=== PATIENT | female | born 1995 | race Hispanic/Latino ===

== ENCOUNTER 2019-03-26 08:28 | Inpatient (IN) ==
[2019-03-26 09:22] LABS: URINE SOURCE VOIDED
[2019-03-26 09:26] LABS: BILIRUBIN URINE NEGATIVE (NEGATIVE); BLOOD URINE 4+ (NEGATIVE); CLARITY VERY CLOUDY (CLEAR); COLOR YELLOW; GLUCOSE URINE NEGATIVE (NEGATIVE); KETONE URINE NEGATIVE (NEGATIVE); LEUKOCYTES URINE 1+ (NEGATIVE); NITRITE URINE NEGATIVE (NEGATIVE); PROTEIN URINE NEGATIVE (NEGATIVE); UROBILINOGEN URINE NORMAL
[2019-03-26] MEDS ORDERED: BRETHINE SUBQ ONE (09:35)
--- NOTE | 2019-03-26 09:53 | OB/GYN PROGRESS NOTE ---
Progress Note OB - . OB Progress Note: Vital Signs - 24 hr 03/26/19 08:36 Temperature 97.1 F L Pulse Rate 77 Respiratory Rate 20 Blood Pressure 99/64 O2 Sat by Pulse Oximetry 97 Laboratory Results - last 24 hr 03/26/19 08:00 Urine Source VOIDED Urine Color YELLOW Urine Clarity VERY CLOUDY A Urine pH 7.0 Ur Specific [place] 1.010 Urine Protein NEGATIVE Urine Ketones NEGATIVE Urine Blood 4+ Urine Nitrite NEGATIVE Urine Bilirubin NEGATIVE Urine Urobilinogen NORMAL Urine WBC 1+ A Urine Glucose NEGATIVE OB TRIAGE NOTE Labor check Patient is a 23 year old with an IUP at 38+ 3 weeks who presents with complaints of bleeding. Patient has had good care and is compliant. she is also complaining of abdominal pain. patient reports she passed a small clot last night. Minimal greenlandic - translation line for assistance AFVSS General: AAOx3 in mild distress with contractions HEENT: NCAT CV: S1 S2 normal Lungs clear Abd: gravid positive bowel sounds Ext; no edema CE 3-4 cms/ 50 percent effaced. ballotable bag of [place]. pinkish fluid on gloves, no ru bleeding FHR: reactive with acels TOCO: contractions q2-6 minutes apart. A/P IUP at 38+3 weeks latent phase of labor - will use one dose of terbutaline to see if we can decrease contractions - monitor for 2 hours and recheck. will admit is cervix is changed or discharge home if cervix is unchanged
[2019-03-26] MEDS ORDERED: PEPCID PO PRN (11:43)
[2019-03-26] MEDS ORDERED: KEFZOL 1 GM/D5W 1 GM/50 ML IVPB IV PRN (11:43)
[2019-03-26] MEDS ORDERED: PEPCID IV PRN (11:43)
[2019-03-26] MEDS ORDERED: REGLAN PO ONE (11:43)
[2019-03-26] MEDS ORDERED: ZOFRAN IV PRN (11:43)
[2019-03-26] MEDS ORDERED: PEPCID PO ONE (11:43)
[2019-03-26] MEDS ORDERED: STADOL IV PRN (11:43)
[2019-03-26] MEDS ORDERED: TYLENOL PO PRN (11:43)
[2019-03-26] MEDS ORDERED: SODIUM CHLORIDE 0.9% INJ SCH (11:45)
[2019-03-26] MEDS ORDERED: PITOCIN 30 UNITS/NS 30 UNIT/500 ML IV.SOLN IV SCH (11:45)
[2019-03-26] MEDS: LR 1,000 ML IV SCH ×2 (12:25→13:15)
[2019-03-26] MEDS ORDERED: FENTANYL-BUPIV-NS 2 MCG-0.1% 200 ML EPIDURAL PRN (12:30)
[2019-03-26] MEDS ORDERED: NAROPIN 0.2% INJ ONE (12:45)
[2019-03-26 12:48] LABS: BASO# 0.01 X1000 (0.0-0.2); BASO% 0.1 % (0.0-0.8); EOS# 0.02 X1000 (0.0-0.7); EOS% 0.3 % (0.0-10.0); HEMATOCRIT 32.8 % (37.0-47.0); IMM GRAN# 0.05 X1000 (0.0-0.04); IMM GRAN% 0.7 % (0.0-0.5); LYMPH# 1.33 X1000 (1.2-3.4); LYMPH% 18.5 % (20.5-51.1); MCHC 33.5 g/dL (33-37); MCV 101.2 FL (81-99); MONO# 0.74 X1000 (0.11-0.59); MONO% 10.3 % (1.7-9.3); MPV 9.9 FL (7.4-10.4); NEUT# 5.03 X1000 (1.4-6.5); NEUT% 70.1 % (42.2-75.2); PLT 168 X1000 (130-400); RBC 3.24 XMIL (4.2-5.4); RDW 12.3 % (11.5-14.5); WBC 7.18 X1000 (4.8-10.8)
[2019-03-26 13:35] LABS: UR AMPHETAMINES QUAL NONE DETECTED (NONE DETECT); UR BARBITUATES QUAL NONE DETECTED (NONE DETECT); UR BENZODIAZEPIN QUAL NONE DETECTED (NONE DETECT); UR CANNABINOIDS QUAL NONE DETECTED (NONE DETECT); UR COCAINE QUAL NONE DETECTED (NONE DETECT); UR METHADONE QUAL NONE DETECTED (NONE DETECT); UR METHAMPHETAMINE QUAL NONE DETECTED (NONE DETECT); UR OPIATES QUAL NONE DETECTED (NONE DETECT); UR OXYCODONE QUAL NONE DETECTED (NONE DETECT); UR PCP QUAL NONE DETECTED (NONE DETECT); UR PROPOXYPHENE QUAL NONE DETECTED (NONE DETECT); UR TCA QUAL NONE DETECTED (NONE DETECT)
--- NOTE | 2019-03-26 14:44 | OB/GYN PROGRESS NOTE ---
Progress Note OB - . OB Progress Note: Vital Signs - 24 hr 03/26/19 08:36 03/26/19 11:00 Temperature 97.1 F L 97.6 F Pulse Rate 77 93 H Respiratory Rate 20 18 Blood Pressure 99/64 96/53 O2 Sat by Pulse Oximetry 97 98 Laboratory Results - last 24 hr 03/26/19 03/26/19 03/26/19 08:00 12:25 12:25 WBC 7.18 RBC 3.24 L Hgb 11.0 L Hct 32.8 L MCV 101.2 H MCH 34.0 H MCHC 33.5 RDW Std Deviation 12.3 Plt Count 168 MPV 9.9 Immature Gran % (Auto) 0.7 H Neut % (Auto) 70.1 Lymph % (Auto) 18.5 L [place] % (Auto) 10.3 H Eos % (Auto) 0.3 Baso % (Auto) 0.1 Immature Gran # (Auto) 0.05 H Neut # (Auto) 5.03 Lymph # (Auto) 1.33 [place] # (Auto) 0.74 H Eos # (Auto) 0.02 Baso # (Auto) 0.01 Urine Source VOIDED Urine Color YELLOW Urine Clarity VERY CLOUDY A Urine pH 7.0 Ur Specific [place] 1.010 Urine Protein NEGATIVE Urine Ketones NEGATIVE Urine Blood 4+ Urine Nitrite NEGATIVE Urine Bilirubin NEGATIVE Urine Urobilinogen NORMAL Urine WBC 1+ A Urine Glucose NEGATIVE Urine Opiates Screen Ur Oxycodone Screen Urine Methadone Screen U Propoxyphene Qual Ur Barbituates Screen Ur Tricyclics Screen Ur Phencyclidine Scrn Ur Amphetamines Screen U Methamphetamines Scrn U Benzodiazepines Scrn Urine Cocaine Screen U Cannabinoids Screen RPR NON-REACTIVE 03/26/19 13:07 WBC RBC Hgb Hct MCV MCH MCHC RDW Std Deviation Plt Count MPV Immature Gran % (Auto) Neut % (Auto) Lymph % (Auto) [place] % (Auto) Eos % (Auto) Baso % (Auto) Immature Gran # (Auto) Neut # (Auto) Lymph # (Auto) [place] # (Auto) Eos # (Auto) Baso # (Auto) Urine Source Urine Color Urine Clarity Urine pH Ur Specific [place] Urine Protein Urine Ketones Urine Blood Urine Nitrite Urine Bilirubin Urine Urobilinogen Urine WBC Urine Glucose Urine Opiates Screen NONE DETECTED Ur Oxycodone Screen NONE DETECTED Urine Methadone Screen NONE DETECTED U Propoxyphene Qual NONE DETECTED Ur Barbituates Screen NONE DETECTED Ur Tricyclics Screen NONE DETECTED Ur Phencyclidine Scrn NONE DETECTED Ur Amphetamines Screen NONE DETECTED U Methamphetamines Scrn NONE DETECTED U Benzodiazepines Scrn NONE DETECTED Urine Cocaine Screen NONE DETECTED U Cannabinoids Screen NONE DETECTED RPR OB progress note Patient doing well after epidural. No complaints. AFVSS [place]: contractions q 3 minutes FHR: reactive at 130 bpm with acels CE: 6-7 cm/60% effaced/-2 A/P IUP at 38+3 in labor - GBS negative -epidural in place - expect vaginal delivery
[2019-03-26] MEDS ORDERED: XYLOCAINE-MPF 1% INJ PRN (20:47)
[2019-03-26] MEDS ORDERED: MINERAL OIL PRN (20:47)
[2019-03-27] MEDS ORDERED: MINERAL OIL PO PRN (01:09)
[2019-03-27] MEDS ORDERED: CYTOTEC PO PRN (01:09)
[2019-03-27] MEDS ORDERED: ATARAX PO PRN (01:09)
[2019-03-27] MEDS ORDERED: AMBIEN PO PRN (01:09)
[2019-03-27] MEDS ORDERED: PITOCIN IM PRN (01:09)
[2019-03-27] MEDS ORDERED: PERI MEDS (DERMOPLAST/NUPERCAINAL/TUCKS) MISC PRN (01:09)
[2019-03-27] MEDS ORDERED: BENADRYL IV PRN (01:09)
[2019-03-27] MEDS ORDERED: HYDROXYZINE IM PRN (01:09)
[2019-03-27] MEDS ORDERED: M-M-R II VACCINE SUBQ ONE (01:09)
[2019-03-27] MEDS ORDERED: XYLOCAINE-MPF 1% INJ PRN (01:09)
[2019-03-27] MEDS ORDERED: BOOSTRIX VACCINE IM ONE (01:09)
--- NOTE | 2019-03-27 01:09 | OB/GYN PROGRESS NOTE ---
Progress Note OB - . OB Progress Note: Vital Signs - 24 hr 03/26/19 08:36 03/26/19 11:00 03/26/19 13:30 Temperature 97.1 F L 97.6 F 97.6 F Pulse Rate 77 93 H 78 Respiratory Rate 20 18 20 Blood Pressure 99/64 96/53 102/63 O2 Sat by Pulse Oximetry 97 98 100 Laboratory Results - last 24 hr 03/26/19 03/26/19 03/26/19 08:00 12:25 12:25 WBC 7.18 RBC 3.24 L Hgb 11.0 L Hct 32.8 L MCV 101.2 H MCH 34.0 H MCHC 33.5 RDW Std Deviation 12.3 Plt Count 168 MPV 9.9 Immature Gran % (Auto) 0.7 H Neut % (Auto) 70.1 Lymph % (Auto) 18.5 L [place] % (Auto) 10.3 H Eos % (Auto) 0.3 Baso % (Auto) 0.1 Immature Gran # (Auto) 0.05 H Neut # (Auto) 5.03 Lymph # (Auto) 1.33 [place] # (Auto) 0.74 H Eos # (Auto) 0.02 Baso # (Auto) 0.01 Urine Source VOIDED Urine Color YELLOW Urine Clarity VERY CLOUDY A Urine pH 7.0 Ur Specific [place] 1.010 Urine Protein NEGATIVE Urine Ketones NEGATIVE Urine Blood 4+ Urine Nitrite NEGATIVE Urine Bilirubin NEGATIVE Urine Urobilinogen NORMAL Urine WBC 1+ A Urine Glucose NEGATIVE Urine Opiates Screen Ur Oxycodone Screen Urine Methadone Screen U Propoxyphene Qual Ur Barbituates Screen Ur Tricyclics Screen Ur Phencyclidine Scrn Ur Amphetamines Screen U Methamphetamines Scrn U Benzodiazepines Scrn Urine Cocaine Screen U Cannabinoids Screen RPR NON-REACTIVE 03/26/19 13:07 WBC RBC Hgb Hct MCV MCH MCHC RDW Std Deviation Plt Count MPV Immature Gran % (Auto) Neut % (Auto) Lymph % (Auto) [place] % (Auto) Eos % (Auto) Baso % (Auto) Immature Gran # (Auto) Neut # (Auto) Lymph # (Auto) [place] # (Auto) Eos # (Auto) Baso # (Auto) Urine Source Urine Color Urine Clarity Urine pH Ur Specific [place] Urine Protein Urine Ketones Urine Blood Urine Nitrite Urine Bilirubin Urine Urobilinogen Urine WBC Urine Glucose Urine Opiates Screen NONE DETECTED Ur Oxycodone Screen NONE DETECTED Urine Methadone Screen NONE DETECTED U Propoxyphene Qual NONE DETECTED Ur Barbituates Screen NONE DETECTED Ur Tricyclics Screen NONE DETECTED Ur Phencyclidine Scrn NONE DETECTED Ur Amphetamines Screen NONE DETECTED U Methamphetamines Scrn NONE DETECTED U Benzodiazepines Scrn NONE DETECTED Urine Cocaine Screen NONE DETECTED U Cannabinoids Screen NONE DETECTED RPR Delivery Note: Patient was admitted in labor, received an epidural progressed to complete dilation. patient was delivered via Normal Spontaneous vaginal delivery of a Live viable female weighing 7lbs and 2 ounces over a second degree midline laceration. Apgars were 9 and 9 at one and five minutes respectively. placenta delivered spontaneously appears intact. second degree laceration repaired using 2.0 chromic. Estimated blood loss about 250 cc. Infant to New born nursery. Mother tolerated procedure well. Delivery Doctor- Jabier
[2019-03-27] MEDS ORDERED: PITOCIN 30 UNITS/NS 30 UNIT/500 ML IV.SOLN IV SCH (01:15)
[2019-03-27] MEDS ORDERED: PITOCIN 20 UNITS/NS 20 UNITS/1,000 ML IV.SOLN ONE (01:15)
[2019-03-27] MEDS ORDERED: PITOCIN 20 UNITS/NS 20 UNITS/1,000 ML IV.SOLN IV SCH (01:15)
[2019-03-27] MEDS: PERCOCET-5 PO PRN ×3 (02:12→22:11)
[2019-03-27] MEDS: MOTRIN PO PRN ×3 (02:12→19:28)
[2019-03-27 06:14] LABS: BASO# 0.01 X1000 (0.0-0.2); BASO% 0.1 % (0.0-0.8); HEMOGLOBIN 9.6 g/dL (12.0-16.0); IMM GRAN# 0.03 X1000 (0.0-0.04); IMM GRAN% 0.2 % (0.0-0.5); LYMPH# 0.81 X1000 (1.2-3.4); LYMPH% 5.1 % (20.5-51.1); MCH 34.2 PG (27-31); MCHC 33.1 g/dL (33-37); MCV 103.2 FL (81-99); MONO% 8.2 % (1.7-9.3); NEUT# 13.72 X1000 (1.4-6.5); NEUT% 86.4 % (42.2-75.2); PLT 168 X1000 (130-400); RBC 2.81 XMIL (4.2-5.4); RDW 12.4 % (11.5-14.5); WBC 15.87 X1000 (4.8-10.8)
[2019-03-27 06:50] LABS: SEGS 90 % (42-75)
[2019-03-27 06:51] LABS: LYMPHS 4 % (21-51); MONO 6 % (1-9)
[2019-03-27] MEDS: PRECARE PO SCH (09:24)
[2019-03-27] MEDS: BENADRYL PO PRN (10:41)
--- NOTE | 2019-03-27 10:49 | OB/GYN PROGRESS NOTE ---
Progress Note OB - . OB Progress Note: Vital Signs - 24 hr 03/26/19 11:00 03/26/19 13:30 03/27/19 01:00 Temperature 97.6 F 97.6 F 98.9 F Pulse Rate 93 H 78 89 Respiratory Rate 18 20 18 Blood Pressure 96/53 102/63 104/64 Blood Pressure [Right Arm] 104/64 O2 Sat by Pulse Oximetry 98 100 100 03/27/19 01:10 03/27/19 01:20 03/27/19 01:30 Temperature Pulse Rate 86 91 H 82 Respiratory Rate 18 18 18 Blood Pressure Blood Pressure [Right Arm] 101/62 122/65 O2 Sat by Pulse Oximetry 100 100 100 03/27/19 01:40 03/27/19 01:50 03/27/19 02:00 Temperature Pulse Rate 79 93 H 70 Respiratory Rate 18 18 18 Blood Pressure Blood Pressure [Right Arm] 101/55 O2 Sat by Pulse Oximetry 100 100 100 03/27/19 02:13 03/27/19 04:00 03/27/19 07:45 Temperature 96.9 F L Pulse Rate 82 82 82 Respiratory Rate 18 16 18 Blood Pressure 95/57 109/61 Blood Pressure [Right Arm] 95/57 O2 Sat by Pulse Oximetry 100 99 98 Laboratory Results - last 24 hr 03/26/19 03/26/19 03/26/19 12:25 12:25 13:07 WBC 7.18 RBC 3.24 L Hgb 11.0 L Hct 32.8 L MCV 101.2 H MCH 34.0 H MCHC 33.5 RDW Std Deviation 12.3 Plt Count 168 MPV 9.9 Immature Gran % (Auto) 0.7 H Neut % (Auto) 70.1 Lymph % (Auto) 18.5 L [place] % (Auto) 10.3 H Eos % (Auto) 0.3 Baso % (Auto) 0.1 Immature Gran # (Auto) 0.05 H Neut # (Auto) 5.03 Lymph # (Auto) 1.33 [place] # (Auto) 0.74 H Eos # (Auto) 0.02 Baso # (Auto) 0.01 Segmented Neutrophils Lymphocytes Monocytes Urine Opiates Screen NONE DETECTED Ur Oxycodone Screen NONE DETECTED Urine Methadone Screen NONE DETECTED U Propoxyphene Qual NONE DETECTED Ur Barbituates Screen NONE DETECTED Ur Tricyclics Screen NONE DETECTED Ur Phencyclidine Scrn NONE DETECTED Ur Amphetamines Screen NONE DETECTED U Methamphetamines Scrn NONE DETECTED U Benzodiazepines Scrn NONE DETECTED Urine Cocaine Screen NONE DETECTED U Cannabinoids Screen NONE DETECTED RPR NON-REACTIVE ABO/Rh RhIG Candidate? 03/27/19 03/27/19 05:33 05:37 WBC 15.87 H D RBC 2.81 L Hgb 9.6 L Hct 29.0 L MCV 103.2 H MCH 34.2 H MCHC 33.1 RDW Std Deviation 12.4 Plt Count 168 MPV 10.0 Immature Gran % (Auto) 0.2 Neut % (Auto) 86.4 H Lymph % (Auto) 5.1 L [place] % (Auto) 8.2 Eos % (Auto) 0.0 Baso % (Auto) 0.1 Immature Gran # (Auto) 0.03 Neut # (Auto) 13.72 H Lymph # (Auto) 0.81 L [place] # (Auto) 1.30 H Eos # (Auto) 0.00 Baso # (Auto) 0.01 Segmented Neutrophils 90 H Lymphocytes 4 L Monocytes 6 Urine Opiates Screen Ur Oxycodone Screen Urine Methadone Screen U Propoxyphene Qual Ur Barbituates Screen Ur Tricyclics Screen Ur Phencyclidine Scrn Ur Amphetamines Screen U Methamphetamines Scrn U Benzodiazepines Scrn Urine Cocaine Screen U Cannabinoids Screen RPR ABO/Rh A NEGATIVE RhIG Candidate? NO POST NOTE patient report she has swelling in her perineal area. AFVSS perineum - swollen- sutures in tact. a/p PPD#1 perineal swelling - trial of benadry and ice packs
[2019-03-27] MEDS: PERICOLACE PO SCH (22:11)
[2019-03-28] MEDS: PRECARE PO SCH (08:58)
[2019-03-28] MEDS: MOTRIN PO PRN ×2 (08:58→17:10)
--- NOTE | 2019-03-28 09:54 | OB/GYN PROGRESS NOTE ---
Progress Note OB - . Patient Problems: Current Active Problems Problem Status Onset Language barrier Acute Vaginal delivery Acute Intrauterine Acute OB Progress Note: Vital Signs - 24 hr 03/27/19 12:00 03/27/19 15:15 03/27/19 22:11 Temperature 96.8 F L 97.6 F 97.3 F L Pulse Rate 80 81 89 Respiratory Rate 20 20 16 Blood Pressure 87/53 87/49 94/53 O2 Sat by Pulse Oximetry 100 98 99 03/28/19 08:35 Temperature 97.1 F L Pulse Rate 89 Respiratory Rate 20 Blood Pressure 91/55 O2 Sat by Pulse Oximetry 100 PROGRESS NOTE Patient has no complaints this morning she is breast feeding without difficulty. Lochia is less than menses. swelling decreased AFVSS General: AAOx3 in NAD HEENT: NCAT CV: S1 S2 normal Lungs: clear to auscultation Abdomen: fundus firm positive bowel sounds Ext: No edema Perineum: labial and perineal swelling much decreased sutures intact A/P Post day #1 s/p with second degree laceration healing well breast feeding and doing well continue current care
--- NOTE | 2019-03-28 11:01 | HISTORY AND PHYSICAL ---
HISTORY OF PRESENT ILLNESS: The patient is admitted as a 23-year-old, G1, P0 with an intrauterine at 38 weeks and 3 days. The patient had good care and presents today with complaints of contractions. The patient was triaged and on presentation was 3 cm dilated where on repeat exam, she was 6 cm dilated, so she was admitted to Labor and Delivery for delivery. OBSTETRIC HISTORY: Significant for 1 . GYNECOLOGICAL HISTORY: Negative. PAST MEDICAL HISTORY: Patient has anemia and hypertension. PAST SURGICAL HISTORY: The patient had an appendectomy. FAMILY HISTORY: Noncontributory. SOCIAL HISTORY: Negative. Patient lives with her . LABORATORY STUDIES: Please see records for her labs. PHYSICAL EXAMINATION: VITAL SIGNS: The patient is afebrile. Vital signs are stable on admission. GENERAL: Awake, alert, oriented x3, in minimal distress. HEENT: Patient is normocephalic, atraumatic. CARDIOVASCULAR: S1, S2 normal. LUNGS: Clear. ABDOMEN: Gravid uterus. Positive bowel sounds. EXTREMITIES: No edema. GENITOURINARY: The cervical exam is 6 cm, approximately 70% effaced and -1. ASSESSMENT AND PLAN: Intrauterine at 38 weeks and 3 days in the labor. GBS negative, rubella non immune. The patient is Rh negative. Admit to Labor and Delivery. Patient may have epidural. Expect vaginal delivery. cc: Ulices Eugene MD
[2019-03-28] MEDS: BENADRYL PO PRN (16:33)
[2019-03-28] MEDS: PERCOCET-5 PO PRN (20:47)
[2019-03-28] MEDS: PERICOLACE PO SCH (20:48)
[2019-03-29 08:13] VITALS: BP 92/60
[2019-03-29] MEDS: PRECARE PO SCH (08:47)
[2019-03-29] MEDS ORDERED: ANUSOL-HC CREAM TOP SCH (10:00)
--- NOTE | 2019-03-29 13:50 | DISCHARGE SUMMARY ---
ADMISSION DATE: 03/26/2019 DISCHARGE DATE: 03/29/2019 HISTORY OF PRESENT ILLNESS: The patient was admitted as a 23-year-old, G1, P0, with a at term. The patient was delivered by normal spontaneous vaginal delivery of a live viable female , weighing 7 pounds 2 ounces. The patient's course was remarkable for some itching and swelling. The patient is stable for discharge. PHYSICAL EXAM: Vital Signs: Temperature of 96.1, blood pressure 92/60, respiratory rate 16, pulse rate 70. General: Patient is awake, alert, oriented x3, in no apparent distress. She is breast-feeding. HEENT: Normocephalic, atraumatic. Cardiovascular: S1, S2 normal. Lungs: Clear. Abdomen: Fundus is firm below the umbilicus. Perineum is healing well. Extremities: No edema. ASSESSMENT AND PLAN: 1. day #2. 2. Status post with second-degree laceration. The patient is being discharged home to self care. Motrin for pain. Patient is to continue her vitamins. 3. The patient is scheduled to follow up in 4 to 6 weeks with her doctor, Dr. Flanagan for routine care. cc: Ulices Eugene MD
== END 2019-03-29 11:15 | disposition home or self-care (01) | DRG 807 ==
LOC: P.OPLD 08:28 → P.LD 08:30
PROVIDERS: ADMIT Obstetrics & Gynecology; ATTEND Obstetrics & Gynecology
CPT/HCPCS: 59025; 80104; 80301; 80305; 81003; 85025; 86592; 86900; 86901; 90707; 90715; A9270; G0431; G0434; G0477; J2590; J2795; J3105; J7120